=== PATIENT | female | born 1975 | race African-American/Black ===

== ENCOUNTER 2018-06-01 20:57 | Emergency (ER) | payer MEDICAID ==
[~2018-06-01] VITALS: Ht 167.6 cm; Wt 77.0 kg
[~2018-06-01 20:57] MED LIST: LOPE1LIQ81 PO
[2018-06-01 21:01] VITALS: BP 114/82
== END 2018-06-01 21:45 | disposition left against medical advice (07) ==
LOC: ER 21:45
DX: Z53.21 Procedure and treatment not carried out due to patient leaving prior to being seen by health care provider (principal)